=== PATIENT | female | born 1985 | race Hispanic/Latino ===

== ENCOUNTER 2018-06-22 13:50 | Inpatient (IN) | payer OTHER ==
[2018-06-22 14:19] VITALS: BMI 28.8
--- NOTE | 2018-06-22 14:27 | OBHP ---
Datetime: 06/22/2018 14:23 IP Adm Impression: Term, intrauterine Admit Comment, IP Provider: at 38=weels sen from pm for htn. no hedache or blurry vision, no c txs, v , lof+fm obhx primi pmh de med pnv all nkda psh de soch de ve closed a/p gp0 at 38+weeks pih npo/ivf labs bp mon cont colleen and efm cont close obser Pelvic Type - PN: Adequate Extremities - PN: Normal Abdomen - PN: Normal Back - PN: Normal Breast - PN: Normal Lungs - PN: Normal Heart - PN: Normal Thyroid - PN: Normal Neurologic - PN: Normal HEENT - PN: Normal General - PN: Normal FHR - Baseline A Provider: 130 Contraction Comments Provider: none Vital Signs Provider: Reviewed; Within Normal Limits IP Chief Complaint: Signs/Symptoms Gestational HTN NICHD Variability Prov Fetus A: Moderate 6-25bpm NICHD Accel Fetus A IP Provider: 15X15 FHR Category Provider Fetus A: Category I Genitourinary Exam: Normal DTRs - PN: Normal
[2018-06-22 14:52] LABS: HEMOGLOBIN 12.9 g/dL (11.0-16.0); MEAN CELL VOLUME 88.8 fL (81.0-99.0); MEAN CORPUSCULAR HEMOGLOBIN 31.3 pg (27.0-31.0); MEAN CORPUSCULAR HGB CONC 35.3 g/dL (33.0-37.0); MEAN PLATELET VOLUME 8.1 fL (7.2-11.7); RBC 4.13 Mil/uL (3.80-5.20); RED CELL DISTRIBUTION WIDTH 13.5 % (11.5-14.5); WHITE BLOOD COUNT 14.1 K/uL (4.8-10.8)
[2018-06-22 14:54] LABS: SQUAMOUS EPITHIAL 1 /hpf (0-5); URINE BACTERIA OCC (<OCC); URINE BILIRUBIN NEGATIVE (NEGATIVE); URINE BLOOD NEGATIVE (NEGATIVE); URINE CLARITY Clear (Clear); URINE COLOR Straw (YELLOW); URINE GLUCOSE (UA) NORMAL (Normal); URINE LEUKOCYTE ESTERASE NEG Leu/uL (Negative); URINE PROTEIN NEGATIVE (NEGATIVE); URINE UROBILINOGEN NORMAL mg/dL (0.2-1.0)
[2018-06-22 15:03] LABS: PROTHROMBIN TIME 10.4 SECONDS (9.7-12.2)
[2018-06-22 15:06] LABS: ALB/GLOB RATIO 1.2 (1.0-2.1); ALBUMIN 4.2 g/dL (3.5-5.0); ALT/SGPT 28 U/L (9-52); AST/SGOT 18 U/L (14-36); BILIRUBIN,DIRECT 0.4 mg/dL (0.0-0.4); BLOOD UREA NITROGEN 8 mg/dL (7-17); CALCIUM 10.2 mg/dl (8.6-10.4); GFR AFRICAN-AMERICAN > 60; GFR NON-AFRICAN AMERICAN > 60
[2018-06-22] MEDS ORDERED: Oxytocin 30 UNIT 30 UNITS/500 ML BAG IV ONE ×2 (16:13→17:12)
--- NOTE | 2018-06-22 16:14 | OBADHP ---
Datetime: 06/22/2018 14:23 Admit Comment, IP Provider: at 38+weels sen from pm for htn. no hedache or blurry vision, no c txs, v , lof+fm obhx primi pmh de med pnv all nkda psh de soch de ve closed a/p gp0 at 38+weeks pih npo/ivf labs bp mon cont colleen and efm cont close obser bp persistent high ve /-2 pih neg plan asmit to l_d npo/ivf labs start pitocin anticipate Pelvic Type - PN: Adequate Extremities - PN: Normal Abdomen - PN: Normal Back - PN: Normal Breast - PN: Normal Lungs - PN: Normal Heart - PN: Normal Thyroid - PN: Normal Neurologic - PN: Normal HEENT - PN: Normal General - PN: Normal FHR - Baseline A Provider: 130 Contraction Comments Provider: none IP Hx Assessment: The History has been Reviewed and is Current Vital Signs Provider: Reviewed; Within Normal Limits IP Chief Complaint: Signs/Symptoms Gestational HTN NICHD Variability Prov Fetus A: Moderate 6-25bpm NICHD Accel Fetus A IP Provider: 15X15 FHR Category Provider Fetus A: Category I Dilatation, Provider: 4 Effacement, Provider: 70 Station, Provider: -2 Genitourinary Exam: Normal DTRs - PN: Normal IP Adm Impression: Term, intrauterine IP Admit Plan: Admit to unit; Initiate labor induction protocol
[2018-06-22] MEDS ORDERED: Lactated Ringer's 1,000 ML IV SCH (16:15)
--- NOTE | 2018-06-23 04:34 | OBPN ---
Datetime: 06/23/2018 04:28 IP Progress Impression: Normal progression of labor IP Progress Plan: Continue present management Membranes, Provider: Ruptured Amniotic Fluid Color, Provider: Clear Contraction Comments Provider: q 2 FHR - Baseline A Provider: 135 Gestation - Est Wks by US: 38.2 Presentation-Admit: Vertex IP Progress Note Comment: Pt seen and examingd @ 38+ wks with preeclmapsia 4cm on admissin iitially refusing admission then agreeded, initially refusing induction medication the agreed Pitcoin started 4cm-->8cm then SROM now 10cm pt feels urge to push pt denies any headaache, bluyry vison, ruq/episgastri pain PE: GEN NAD< AAO x 3 CVS: RRR, +S1/S2 RESP CTAB/l ABD: soft, No RUQ/epigastric tenderness, +papable ctx VE: 10/100/0 A/P @ 38+ wks fully dilated start pushing anticipate Vital Signs Provider: Reviewed Vital Signs Provider Details: elevated NICHD Variability Prov Fetus A: Moderate 6-25bpm Dilatation, Provider: 10 Effacement, Provider: 100 Station, Provider: 0 NICHD Decel Fetus A IP Provider: Early Datetime: 06/22/2018 14:23 NICHD Accel Fetus A IP Provider: 15X15 FHR Category Provider Fetus A: Category I
[2018-06-23] MEDS ORDERED: Lidocaine Hydrochloride 0 ML INJ ONE (05:09)
[2018-06-23] MEDS ORDERED: Oxycodone/Acetaminophen 5/325 mg Tab PO PRN ×2 (05:15)
[2018-06-23] MEDS ORDERED: Benzocaine/Menthol 20%-0.5% Topical Spray (60 ml) TOP PRN (05:15)
--- NOTE | 2018-06-23 05:22 | OBDS ---
DELIVERY PERSONNEL Delivery Doctor: Jesús Jameson MD Group Manager: Adela Alvarez RN MATERNAL INFORMATION Delivery Anesthesia: None Provider Comments: Pt was fully dilated and pushing, pt gave verbal consent for episitiomy right med iolateral after being aware of plan preferences and agreed and aware otherwise risk for fourth degree laceration assicated with anal incontinnce. Atraumatic, spontaneous delivery of the head compo und with left hand. no nuchal cord noted. Ataumatic, spontaneous delivery of anterior followed by pos terior shoulder followed by delivery of the body. Both oral and nasal passages of the baby were bulb suctioned. umbilical cord was clamped and cut. Baby handed to mother on abdomen with RN assistance. Cord blood and cord gases collected and sent x 2. Spontaneous delivery of intact placenta with mebran es. Fundus firm. Lower utrine segment boggy, bimanal massage , lower uterien semgnetn firm. Good h emostasis. Right mediolateral epsitiotomy repaired with local anestethic with 2-0 and 3-[address] Live male infant 9,9 weight of 7lbs 12 ounces ebls 200ml LABOR SUMMARY EDC: 07/05/2018 00:00 No. Babies in Womb: 1 Attempted: No LABOR INFORMATION Onset of Labor: 06/22/2018 20:00 Complete Dilatation: 06/23/2018 04:25 Other Ripening Agents: PITOCIN Oxytocin: Induction Group B Beta Strep: Negative (Annotations: as per dr jameson) Steroids Given: None Reason Steroids Not Administered: Not Applicable MEMBRANES Membranes Rupture Method: Spontaneous Rupture of Membranes: 06/23/2018 02:50 Length of Rupture (hrs): 2.12 Amniotic Fluid Color: Clear Amniotic Fluid Amount: Small Amniotic Fluid Odor: Normal STAGES OF LABOR Stage 1 hrs: 8 Stage 1 min: 25 Stage 2 hrs: 0 Stage 2 min: 32 Stage 3 hrs: 0 Stage 3 min: 2 Total Time in Labor hrs: 8 Total Time in Labor min: 59 BABY A INFORMATION Delivery Date/Time: 06/23/2018 04:57 Method of Delivery: Vaginal Born in Route : No : N/A Forceps: N/A Vacuum Extraction: N/A Shoulder Dystocia : No SHOULDER DYSTOCIA BABY A Delivery Date/Time: 06/23/2018 04:57 PRESENTATION/POSITION BABY A Presentation: Cephalic Cephalic Presentation: Vertex Vertex Position: Left Occipital Anterior Breech Presentation: N/A PLACENTA INFORMATION BABY A Placenta Delivery Time : 06/23/2018 04:59 Placenta Method of Delivery: Spontaneous Placenta Status: Delivered SCORES BABY A Heart Rate 1 min: >100 bpm Resp Effort 1 min: Good Cry Reflex Irritability 1 min: Cough or Sneeze or Pulls Away Muscle Tone 1 min: Active Motion Color 1 min: Body [place], Extremities Blue SCORE 1 MIN: 9 Heart Rate 5 min: >100 bpm Resp Effort 5 min: Good Cry Reflex Irritability 5 min: Cough or Sneeze or Pulls Away Muscle Tone 5 min: Active Motion Color 5 min: Body [place], Extremities Blue SCORE 5 MIN: 9 INFANT INFORMATION BABY A Gestational Age at Delivery: 38.2 Gestational Status: Term Outcome : Liveborn Infant Condition : Stable Sex: Male IDENTIFICATION/MEDS BABY A ID Band Number: [id number] Sensor Number: [id number] WEIGHT/LENGTH BABY A Infant Birthweight (gms): 3530 Infant Weight (lb): 7 Infant Weight (oz): 12 Infant Length Inches: 20.00 Infant Length cms: 50.8
[2018-06-23] MEDS: Multiple Vitamins Tab PO SCH (09:40)
[2018-06-24 07:56] LABS: BASO % 0.1 % (0.0-2.0); EOS % 0.3 % (0.0-4.0); LYMPH # 1.8 K/uL (1.0-4.3); LYMPH % 14.7 % (20.0-40.0); MEAN CELL VOLUME 90.3 fL (81.0-99.0); MEAN CORPUSCULAR HEMOGLOBIN 31.5 pg (27.0-31.0); MEAN CORPUSCULAR HGB CONC 34.9 g/dL (33.0-37.0); MONO # 0.7 K/uL (0.0-0.8); MONO % 5.7 % (0.0-10.0); NEUT # 9.6 K/uL (1.8-7.0); NEUT % 79.2 % (50.0-75.0); RBC 3.41 Mil/uL (3.80-5.20); RED CELL DISTRIBUTION WIDTH 13.6 % (11.5-14.5); WHITE BLOOD COUNT 12.2 K/uL (4.8-10.8)
[2018-06-24 07:58] LABS: HEMOGLOBIN 10.7 g/dL (11.0-16.0)
[2018-06-24] MEDS: Multiple Vitamins Tab PO SCH (09:29)
--- NOTE | 2018-06-25 09:05 | OBDCSUM ---
Datetime: 06/25/2018 09:03 Discharged to, Provider: Home Follow up at, Provider: Dr Butterfield Disch Instr Activity: Normal activity Disch Instr Diet: Regular Discharge Instructions, Provider: Routine instructions given Discharge Diagnosis, Provider: Term Delivered Discharge Time: 06/25/2018 09:03 Follow up in weeks, Provider: 6 weeks Disch Referrals: None Contraception discussed, Prov: Yes Disch Activity Restrictions: No sexual activity; Nothing in vagina - [place], tampons, douche
--- NOTE | 2018-06-25 09:05 | OBPPN ---
Datetime: 06/25/2018 09:02 PP Pain Prov: Within normal limits PP Nausea Prov: Denies PP Flatus Prov: Yes PP Breasts Prov: Normal PP Heart Prov: Normal PP Lungs Prov: Normal PP Abdomen/Uterus Prov: Normal PP Lochia Prov: Normal PP Vulva/Perineum Prov: Normal PP CVA Tenderness Prov: Normal PP Extremities Prov: Normal PP Impression Prov: Normal progression PP Plan Prov: Continue present management PP Progress Note Prov: Delayed entry: pt seen adn examiend 06/24 7:15am pt seen and examiend reports pain tolerable iwht meds. pt ambulating to bathroom voiidng, tolerati ng regular ddiet, no heavy bleeding, denies any fever, chills, nause, ovmiting, is breast feeding VSS PE: GEN: NAD AA Ox 3 RESP: CTAB/l CVS: RRR, +S1/S2 ABD: Soft, NT, ND, no ugarding no rebound tenderness nor igidty no uterine tendnerss at leve of umbucis VE: minimal lochia ,non foul smelling EXT: no calf tendeness, negative ceferino's sign A/P s/p SNVD PPD # am cbc pain mangnet cont current mangane Vital Signs Provider PP: Reviewed; Within Normal Limits Datetime: 06/25/2018 09:01 PP C/S Incision Prov: Not Applicable PP Progress Prov: Normal
[2018-06-25] MEDS: Multiple Vitamins Tab PO SCH (09:53)
[2018-06-25 15:58] VITALS: BP 127/74; PULSE 75; RESP 18; TEMP 97.3; O2SAT 99
== END 2018-06-25 11:57 | disposition home or self-care (01) | DRG 372 ==
LOC: C.EROB 13:50 → C.4D 16:13 → C.4M 06-23 08:02
PROVIDERS: ADMIT Obstetrics & Gynecology; ATTEND Obstetrics & Gynecology
PROC: 3E0P7VZ Introduction of Hormone into Female Reproductive, Via Natural or Artificial Opening (ICD-10-PCS; 2018-06-22)
PROC: 10E0XZZ Delivery of Products of Conception, External Approach (ICD-10-PCS; principal; 2018-06-23)
PROC: 0W8NXZZ Division of Female Perineum, External Approach (ICD-10-PCS; 2018-06-23)
DX: O13.4 Gestational [pregnancy-induced] hypertension without significant proteinuria, complicating childbirth (principal); O99.334 Smoking (tobacco) complicating childbirth; Z3A.49 Greater than 42 weeks gestation of pregnancy; Z37.0 Single live birth